=== PATIENT | female | born 1950 | race Caucasian/White ===

== ENCOUNTER 2024-05-06 13:42 | Emergency (ER) | payer MEDICARE, OTHER ==
[2024-05-06 13:53] VITALS: BP 155/76; O2SAT 98
[2024-05-06] MEDS: ACETAMINOPHEN 500 MG TABLET PO STA (14:39)
[2024-05-06] MEDS: BACITRACIN ZINC OINT 1 PACKET TOP STA (14:41)
--- NOTE | 2024-05-06 14:56 | CT Report ---
PROCEDURE: Head WO INDICATIONS: head injury, glf TECHNIQUE: Noncontrast 4.5 mm thick angled axial sections acquired from the foramen magnum to the vertex. For r adiation dose reduction, the following was used: automated exposure control, adjustment of mA and/or kV according to patient size. COMPARISON: None. FINDINGS: Image quality: Excellent. CSF spaces: Basal cisterns are patent. No extra-axial fluid collections. Ventricles are normal in size and shape. Brain: No midline shift. No intracranial masses or hemorrhage. Alcantara-white matter interface is norm al. Skull and face: Calvarium and visualized facial bones are intact, without suspicious lesions. Sinuses: Visualized sinuses and mastoids are clear. IMPRESSION: No acute intracranial pathology. Reviewed by: Kendrick Richter MD on 05/06/2024 2:55 PM PDT Approved by: Kendrick Richter MD on 05/06/2024 2:55 PM PDT Station ID: [id number]
--- NOTE | 2024-05-06 15:28 | ED Physician Documentation ---
PD HPI HEAD INJURY - Stated complaint Stated Complaint: GLF, FACIAL INJURY - Chief complaint Chief Complaint: Trauma Hd/Nk - Additional information Additional information: 74-year-old female with no pertinent past medical history presents emergency department for chin abrasion. Patient says that she was getting into her son's truck she somehow lost her balance and fell on the ground and hit her chin on the track on the way down. She had no loss of consciousness she is on no blood thinners she also has a superficial abrasion to her left knee and left wrist. She has full range of motion to all limbs and extremities no pain there. She does say that she has very mild pain to her left jaw she is able to open and close and speak without any difficulty. PD PAST MEDICAL HISTORY - Past Medical History Past Medical History: Yes Cardiovascular: Other - Past Surgical History Past Surgical History: Yes Ortho: Knee replacement Cardiovascular: Other - Allergies Allergies/Adverse Reactions: Allergies Allergy/AdvReac Type Severity Reaction Status Date / Time No Known Drug Allergies Allergy Verified 05/06/24 13:48 - Social History Does the pt smoke?: No Smoking Status: Never smoker Does the pt drink ETOH?: No Does the pt have substance abuse?: No - Immunizations Immunizations are current?: Yes PD ED PE NORMAL - Vitals Vital signs reviewed: Yes - General General: Alert and oriented X 3, No acute distress, Well developed/nourished - HEENT HEENT: PERRL, EOMI, Moist mucous membranes, Other (Superficial chin abrasion full range of motion to jaw no tenderness with palpation to either side of jaw.) - Neck Neck: No bony TTP, C-Spine cleared by NEXUS criteria - Cardiac Cardiac: RRR - Respiratory Respiratory: No respiratory distress, Clear bilaterally - Abdomen Abdomen: Normal bowel sounds, Soft, Non tender, Non distended, No organomegaly - Derm Derm: Other (chin abrasion, left volar hand superficial abrasion, left knee superficial abrasion) - Extremities Extremities: No deformity, No tenderness to palpate, Normal ROM s pain, No edema, No calf tenderness / cord - Neuro Neuro: Alert and oriented X 3, inhalation therapy aide 2-12 intact, No motor deficit, No sensory deficit, Normal speech Eye Opening: Spontaneous Motor: Obeys Commands Verbal: Oriented GCS Score: 15 - Psych Psych: Normal mood, Normal affect Results - Vitals Vitals: Vital Signs - 24 hr 05/06/24 13:48 Temperature 36.5 C Heart Rate 70 Respiratory 16 Rate Blood Pressure 155/76 H O2 Saturation 98 Oxygen O2 Source Room air - Rads (name of study) Head CT without Relevant Findings:: Final report received, EMP independent interpretation of test, Other (No acute intracranial hemorrhages or abnormalities) PD Medical Decision Making - ED course ED course: 74-year-old female presents emergency department for head injury. She had no loss of consciousness not any blood thinners while here she remains neurologically intact. Head CT was completed for further evaluation no intracranial hemorrhages or abnormalities. Patient was originally slightly concerned about her job but she has full range of motion of her jaw with very minimal tenderness to either side. The superficial abrasion on her chin was cleansed with normal saline and bacitracin was applied over with a Band-Aid as well as the abrasion to her left hand. She was taught how to manage wounds at home return precautions given all questions answered patient safe for discharge at this time. Departure - Departure Disposition: 01 Home, Self Care Clinical Impression: Head injury Qualifiers: Encounter type: initial encounter Qualified Code(s): S09.90XA - Unspecified injury of head, initial encounter Abrasion of chin Qualifiers: Encounter type: initial encounter Qualified Code(s): S00.81XA - Abrasion of other part of head, initial encounter Instructions: ED Abrasion, ED Head Injury Closed Comments: Thank you for trusting us with your care. We have completed a head CT we do not see any acute intracranial abnormalities or findings. In regards to your wounds your thumb covered with a Band-Aid with either Vaseline or bacitracin to help with healing follow-up with primary care provider as needed upon return to home keep an eye out for signs symptoms of infection which are redness, swelling, drainage that is yellow or green fevers or chills. Forms: PCP List Discharge Date/Time: 05/06/24 15:58
== END 2024-05-06 15:58 | disposition home or self-care (01) ==
LOC: ED 13:42
DX: S09.90XA Unspecified injury of head, initial encounter (principal); S00.81XA Abrasion of other part of head, initial encounter; S80.212A Abrasion, left knee, initial encounter; S60.812A Abrasion of left wrist, initial encounter; W01.198A Fall on same level from slipping, tripping and stumbling with subsequent striking against other object, initial encounter; Y93.89 Activity, other specified; Y92.812 Truck as the place of occurrence of the external cause
CPT/HCPCS: 70450; 99283; 99284; A9270